=== PATIENT | male | born 1960 | race African-American/Black ===

== ENCOUNTER 2019-01-01 13:36 | Inpatient (IN) | payer BC ==
[~2019-01-01] VITALS: Ht 172.7 cm; Wt 72.6 kg
[2019-01-01] MEDS ORDERED: MORPHINE SULFATE INJ 4 MG/ML INJ 1ML IV ONE (13:45)
[2019-01-01] MEDS ORDERED: CEFTRIAXONE SOD 1 GM/NS 50 ML 50 ML IV SCH (13:45)
[2019-01-01] MEDS ORDERED: ONDANSETRON HCL INJ 2MG/ML 2ML 2 MG/ML VIAL IV ONE (13:45)
[2019-01-01] MEDS ORDERED: DEXAMETHASONE 10MG/ML PF INJ IV ONE (13:45)
[2019-01-01] MEDS ORDERED: SODIUM CHLORIDE 0.9% 1000ML 1,000 ML IV STA ×2 (13:45)
[2019-01-01] MEDS ORDERED: CLINDAMYCIN PHOS 900MG/ 50ML 50 ML IV SCH ×2 (14:00→19:00)
[2019-01-01] MEDS ORDERED: SODIUM CHLORIDE 0.9% 1000ML 1,000 ML IV SCH (14:36)
[2019-01-01] MEDS ORDERED: MORPHINE SULFATE INJ 4 MG/ML INJ 1ML IV PRN ×2 (14:45→18:45)
[2019-01-01] MEDS ORDERED: ONDANSETRON HCL INJ 2MG/ML 2ML 2 MG/ML VIAL IV PRN (14:45)
[2019-01-01] MEDS ORDERED: MORPHINE SULFATE 2 MG/ML SYR 1ML IV PRN (14:45)
[2019-01-01 15:12] LABS: BASOPHILS % 0.2 % (0.0-1.0); EOSINOPHILS % 0.2 % (0.0-6.0); HEMATOCRIT 42.5 % (38.2-49.6); HEMOGLOBIN 14.8 g/dL (14.0-18.0); LYMPHOCYTES # (AUTO) 1.5 (1.0-3.2); LYMPHOCYTES % 9.3 % (18.0-39.1); MEAN CORPUSCULAR HEMOGLOBIN 30.4 pg (28-32); MEAN CORPUSCULAR HGB CONC 34.8 g/dL (31-35); MEAN CORPUSCULAR VOLUME 87.3 fL (81-99); MONOCYTES # (AUTO) 1.5 (0.2-0.8); NEUTROPHILS # (AUTO) 13.2 (2.1-6.9); NEUTROPHILS % 80.8 % (38.7-80.0); PLATELET COUNT 266 x10e3/uL (140-360); RED BLOOD COUNT 4.87 x10e6/uL (4.3-5.7); RED CELL DISTRIBUTION WIDTH 12.5 % (11.7-14.4)
[2019-01-01 15:20] LABS: INR 1.08; PROTHROMBIN TIME 14.5 seconds (11.9-14.5)
[2019-01-01 15:21] LABS: PARTIAL THROMBOPLASTIN TIME 32.6 seconds (23.8-35.5)
[2019-01-01 15:30] LABS: ALANINE AMINOTRANSFERASE 16 IU/L (0-55); ALBUMIN 4.3 g/dL (3.5-5.0); ALKALINE PHOSPHATASE 54 IU/L (40-150); ANION GAP 12.9 mmol/L (8-16); BLOOD UREA NITROGEN 10 mg/dL (7-26); BUN/CREATININE RATIO 13 (6-25); CARBON DIOXIDE 30 mmol/L (22-29); CHLORIDE 95 mmol/L (98-107); CREATININE, SERUM 0.76 mg/dL (0.72-1.25); EST GLOMERULAR FILTRATION RATE > 60 ML/MIN (60-); GLUCOSE 118 mg/dL (74-118); MAGNESIUM 2.4 MG/DL (1.3-2.1); POTASSIUM 3.9 mmol/L (3.5-5.1); SODIUM 134 mmol/L (136-145)
[2019-01-01 15:34] LABS: BILIRUBIN,URINE NEGATIVE (NEGATIVE); CLARITY,URINE CLEAR (CLEAR); COLOR,URINE YELLOW (YELLOW); KETONES,URINE TRACE (NEGATIVE); LEUKOCYTE ESTERASE ,URINE NEGATIVE (NEGATIVE); NITRITE,URINE NEGATIVE (NEGATIVE); PROTEIN,URINE DIPSTICK NEGATIVE (NEGATIVE); URINE UROBILINOGEN 0.2 mg/dL (0.2 - 1)
[2019-01-01 15:45] LABS: BACTERIA,URINE FEW /HPF
[2019-01-01] MEDS ORDERED: SODIUM CHLORIDE 0.9% 50ML 50 ML ONE (16:02)
[2019-01-01] MEDS ORDERED: IOPAMIDOL 370 MG/ML 200 ML INFUS..BTL INJ ONE (16:02)
[2019-01-01] MEDS ORDERED: DEXAMETHASONE SOD PHOS 10 MG/1 ML VIAL ONE (16:35)
--- NOTE | 2019-01-01 16:40 | Diagnostic Imaging Report ---
EXAMINATION: CHEST SINGLE (PORTABLE) INDICATION: Epiglottitis. COMPARISON: None FINDINGS: TUBES and LINES: None. LUNGS: Lungs are well inflated. There is no evidence of pneumonia or pulmonary edema. PLEURA: No pleural effusion or pneumothorax. HEART AND MEDIASTINUM: The cardiomediastinal silhouette is unremarkable. BONES AND SOFT TISSUES: No acute osseous abnormality. UPPER ABDOMEN: No free air under the diaphragm. IMPRESSION: No acute radiographic abnormality. Signed by: Dr. Raul Boswell MD on 01/01/2019 4:37 PM
--- NOTE | 2019-01-01 16:49 | Diagnostic Imaging Report ---
ADDENDUM #1 Last sentence of technique section should read, "Streak artifacts obscure some details." Signed by: Dr. Niels Mukherjee M.D. on 01/01/2019 4:[address] SOFT TISSUE NECK W HISTORY: Epiglottitis, deep throat infection COMPARISON: None. TECHNIQUE: Axial CT images were obtained through the neck with intravenous, iodine based contrast. Coronal and sagittal reconstructions obtained from the axial data. One or more of the following dose reduction techniques were used: Automated exposure control, adjustment of the mA and/or kV according to patient size, and/or utilization of iterative reconstruction technique. 100 mL of Isovue-370 were administered. Straightening artifacts obscure some details. DISCUSSION: An approximately 2.7 x 2.5 x 1.4 cm lobular, peripherally enhancing hypodense collection centered in the central tongue base slightly extends into the posterior left floor of the mouth (involving the left intrinsic tongue musculature). There is associated, adjacent mucosal edema in the valleculae, epiglottis, left aryepiglottic fold, and left hypopharynx. The airway is grossly patent. A few small right palatine tonsilloliths are present. The visualized upper aerodigestive tract is otherwise unremarkable. There is mild periapical lucency at the left mandibular posterior molar. A few mild prominent bilateral upper and lower jugular chain lymph nodes are likely reactive. The thyroid gland is unremarkable. The submandibular and parotid glands are unremarkable. Mild right carotid bulb calcified plaque is present. The coin collector, parapharyngeal, posterior cervical, and perivertebral spaces are unremarkable. The visualized intracranial compartment and orbits are grossly unremarkable. There is minimal mucosal thickening in the left maxillary sinus, left ethmoid air cells, and bilateral olfactory recesses. There are prominent degenerative changes throughout the spine. The upper lungs are unremarkable. IMPRESSION: 1. Approximately 2.7 cm lobular, peripherally enhancing, hypodense collection centered in the central tongue base and posterior left floor of the mouth is concerning for an abscess. This may be arising from an underlying infected lingual tonsillar crypt, thyroglossal duct cyst, or ranula. 2. Associated mucosal edema in the valleculae, epiglottis, left aryepiglottic fold, and left hypopharynx. The airway is grossly patent. 3. Mildly prominent bilateral jugular chain lymph nodes are likely reactive. Signed by: Dr. Niels Mukherjee M.D. on 01/01/2019 4:45 PM
[2019-01-01 17:21] VITALS: BP 131/81
[2019-01-01 17:44] VITALS: BP 131/81
[2019-01-01] MEDS ORDERED: DEXAMETHASONE 10MG/ML PF INJ IV SCH (18:00)
[2019-01-01] MEDS ORDERED: DEXAMETHASONE SOD PHOS INJ 4 MG/ML VIAL IV SCH (18:25)
--- NOTE | 2019-01-01 19:10 | NUR ---
PT RESTING ON BED BED SIDE REPORT GIVEN TO ONCOMING NURSE
[2019-01-01 19:19] VITALS: BP 131/81
--- NOTE | 2019-01-01 19:48 | NUR ---
Received patient in bed with family in room. No resp distress. Denies pain at this time. Call light within reach and instructed to call for assistance.
[2019-01-01 19:51] VITALS: BP 111/76
--- NOTE | 2019-01-01 22:10 | NUR ---
Report given to Alexis LUQUE, [facility], [place]
--- NOTE | 2019-01-01 22:36 | NUR ---
Ambulance here for transport to [facility]. stated she will be with during ambulance ride. No resp distress. Denies pain at this time. All belongings with patient.
--- NOTE | 2019-01-02 01:00 | History and Physical ---
CHIEF COMPLAINT: Throat pain and dysphagia. HISTORY OF PRESENT ILLNESS: The patient is a 58-year-old male with 5-day history of throat problems manifesting as severe throat pain, dysphagia, hoarseness, and cough. He was started on Zithromax yesterday by Dr. Jose Mays. He has experienced no similar symptoms previously. He is a nonsmoker. He has had no previous throat or neck surgery. PAST MEDICAL HISTORY: Back problems. PAST SURGICAL HISTORY: None. SOCIAL HISTORY: He is a nonsmoker. ALLERGIES: HE HAS NO KNOWN DRUG ALLERGIES. MEDICATIONS: Zithromax, Tylenol, Nasomist, Xyzal, and Nasacort. PHYSICAL EXAMINATION: GENERAL: The patient is a middle-aged male, appearing of stated age. HEENT: Ears appear normal bilaterally. Nasal exam reveals deviated septum to the left, but otherwise appears clear. Oropharynx, oral cavity is normal. NECK: Tenderness in the upper neck bilaterally, but there is no overt collection of swelling or neck masses. FLEXIBLE FIBEROPTIC NASOLARYNGOSCOPY: revealed epiglottic edema and inflammation without exudates. There is also posterior laryngeal arytenoid inflammation. The airway appeared patent. IMAGING STUDIES: CT of the soft tissues of neck with contrast was performed in the emergency room, which revealed approximately 2.7 x 2.5 x 1.4 cm lobular peripherally enhancing hypodense collection centered in the central tongue base with associated adjacent mucosal edema in the vallecula, epiglottis, left aryepiglottic fold, and left hypopharynx. ASSESSMENT: Throat symptoms due to base of tongue infection with lobular fluid collection consistent with abscess. PLAN: Admit for IV hydration, IV steroids in the form of Decadron, IV antibiotics in the form of Rocephin and clindamycin with pain control. Will transfer to [facility] in the [facility] for further evaluation and management. Janusz Burton MD JKY/MODL /[id number] MTDNikki
== END 2019-01-01 22:39 | disposition short-term general hospital (02) | DRG 153 ==
LOC: ER 13:36 → ERHOLD 14:56 → MED/SURG2 17:15
PROVIDERS: ADMIT Otolaryngology; ATTEND Otolaryngology
DX: J39.1 Other abscess of pharynx (principal)
CPT/HCPCS: 36415; 70491; 71045; 80053; 81001; 83605; 83735; 85025; 85610; 85730; 87040; 87086; 99284; J0696; J1100; J2270; J2405; J7030; Q9967